=== PATIENT | female | born 1990 | race African-American/Black ===

== ENCOUNTER 2018-04-17 19:13 | Emergency (ER) | payer OTHER ==
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
[2018-04-17 19:52] VITALS: BP 102/66; PULSE 81; TEMP 98; BMI 23.0
[2018-04-17] MEDS ORDERED: ACETAMINOPHEN 500 MG TABLET (FP) PO ONE (20:59)
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
[2018-04-17] MEDS ORDERED: ACETAMINOPHEN 500 MG TABLET (FP) ONE (21:04)
== END 2018-04-17 21:28 | disposition home or self-care (01) ==
LOC: JERFT 19:13 → JER 19:13 → JERFT 21:28
DX: S16.1XXA Strain of muscle, fascia and tendon at neck level, initial encounter (principal); S39.012A Strain of muscle, fascia and tendon of lower back, initial encounter; V43.52XA Car driver injured in collision with other type car in traffic accident, initial encounter; Y92.414 Local residential or business street as the place of occurrence of the external cause; Y93.89 Activity, other specified; Y99.8 Other external cause status
CPT/HCPCS: 84703; 99281-25

== ENCOUNTER 2019-03-14 11:48 | Emergency (ER) | payer OTHER ==
[2019-03-14 12:11] VITALS: BP 95/68; PULSE 113; TEMP 98.5; BMI 24.7
[2019-03-14 13:10] LABS: BASO % 0.6 % (0-2.0); EOS % 6.6 % (0-4.5); HEMATOCRIT 39.2 % (32.4-45.2); HEMOGLOBIN 13.1 GM/dL (10.7-15.3); LYMPH % 19.4 % (8-40); MCH 29.6 pg (25.7-33.7); MCHC 33.3 g/dl (32.0-36.0); MEAN CELL VOLUME 88.8 fl (80-96); MEAN PLT VOLUME 7.6 fl (7.5-11.1); MONO % 8.6 % (3.8-10.2); NEUT % 64.8 % (42.8-82.8); PLATELET COUNT 335 K/MM3 (134-434); RBC 4.42 M/mm3 (3.60-5.2); RDW 12.9 % (11.6-15.6); WHITE BLOOD COUNT 8.1 K/mm3 (4.0-10.0)
--- NOTE | 2019-03-14 13:40 | PDOC ---
Documentation entered by Danial Robbins SCRIBE, acting as scribe for Nicolas Rodriguez MD. Nicolas Rodriguez MD: This documentation has been prepared by the Itzel hendrickson Nirvannie, SCRIBE, under my direction and personally reviewed by me in its entirety. I confirm that the documentation accurately reflects all work, treatment, procedures, and medical decision making performed by me. History of Present Illness - General Chief Complaint: Vaginal Bleeding Stated Complaint: VAGINAL BLEEDING Time Seen by Provider: 03/14/19 12:40 History Source: Patient Exam Limitations: No Limitations - History of Present Illness Initial Comments: 03/14/19 13:27 CC: Vaginal bleeding HPI: The patient is a 28 year old female P2, with a significant past medical history of substance abuse (cocaine per EMR) and anxiety, who presents to the emergency department with 2 days of progressively worsening vaginal bleeding. As per patient, her vaginal bleeding onset as spotting and today has progressed to heavy bleeding with large clots with associated lower abdominal cramping, prompting her arrival to the ED. Patient has not received care or confirmatory USS. She denies recent fevers, chills, headache, lightheadedness, or dizziness. She denies recent nausea, vomit, diarrhea or constipation. She denies recent chest pain or shortness of breath. Allergies: [facility] Primary Care Physician: Dr. Pulido LMP: 01/2019 Past History - Past Medical History Allergies/Adverse Reactions: Allergies Allergy/AdvReac Type Severity Reaction Status Date / Time No Known Allergies Allergy Verified 03/14/19 12:11 Home Medications: Ambulatory Orders Pnv95/Iron Fum/Folic Acid [ Caplet] 1 each PO DAILY 01/08/16 Ibuprofen [Motrin -] 600 mg PO QID #28 tablet 01/12/16 Cyclobenzaprine HCl [Flexeril 10 mg] 10 mg PO HS PRN #10 tablet 04/17/18 Ibuprofen [Motrin -] 600 mg PO TID #30 tablet 04/17/18 Anemia: No Asthma: No Cancer: No Cardiac Disorders: No CVA: No COPD: No Diabetes: No GI Disorders: No Disorders: Yes (IN THE PAST) HTN: No Hypercholesterolemia: No Kidney Stones: No Psychiatric Problems: Yes (ANXIETY.) Seizures: No Thyroid Disease: No - Surgical History Abdominal Surgery: Yes - Reproductive History PID: No - Immunization History Immunization Up to Date: Yes - Psycho Social/Smoking Cessation Hx Smoking History: Current every day smoker Have you smoked in the past 12 months: Yes Number of Cigarettes Smoked Daily: 2 Information on smoking cessation initiated: No 'Breaking Loose' booklet given: 03/17/15 Hx Alcohol Use: Yes (social) Drug/Substance Use Hx: No Substance Use Type: Cocaine Hx Substance Use Treatment: No Abd/GI Specific PMHX - Complaint Specific PMHX Hepatitis: No Pancreatitis: No Review of Systems - Review of Systems Able to Perform ROS?: Yes Comments:: 03/14/19 13:28 ROS: A complete review of 10 out of 10 review of systems is taken and is negative apart from what is previously mentioned below and in the HPI. *Physical Exam - Vital Signs Last Vital Signs Temp Pulse Resp BP Pulse Ox 98.5 F 113 H 16 95/68 100 03/14/19 12:08 03/14/19 12:08 03/14/19 12:08 03/14/19 12:08 03/14/19 12:08 - Physical Exam 03/14/19 13:28 Vitals: Triage Vital signs reviewed General Appearance: no acute distress, well nourished well developed, Head: Atraumatic, normocephalic Cardiac: Regular rate and rhythm, no murmurs, no rubs, no gallops, Lungs: Clear to auscultation bilateral, good air movement bilaterally, Abdomen: +Mild lower abdominal tenderness. Soft, nondistended, normal bowel sounds Rectal: Exam deferred Extremities: Full range of motion to all extremities, no cyanosis, clubbing, or edema Skin: Warm and dry, no rashes or lesions, no petechiae Psych: normal mood, normal affect ED Treatment Course - LABORATORY CBC & Chemistry Diagram: 03/14/19 13:00 - ADDITIONAL ORDERS Additional order review: 03/14/19 13:00 RBC 4.42 MCV 88.8 MCHC 33.3 RDW 12.9 MPV 7.6 Neutrophils % 64.8 Lymphocytes % 19.4 D Monocytes % 8.6 Eosinophils % 6.6 H D Basophils % 0.6 - RADIOLOGY Radiology Studies Ordered: Category Date Time Status TRANSVAGINAL ULTRASOUND US [US] Stat Ultrasound 03/14/19 12:37 Taken Medical Decision Making - Medical Decision Making 03/14/19 13:57 History and examination consistent with miscarriage in process Be positive blood type hCG 1000 We will recommend follow-up with her [facility] or with Dr. Paulino Patient require 2-day follow-up for repeat beta repeat ultrasound Findings, the need for follow-up and strict return instructions discussed with patient. Discharge - Discharge Information Problems reviewed: Yes Clinical Impression/Diagnosis: Miscarriage Condition: Fair Disposition: HOME - Admission No - Follow up/Referral Referrals: Beth Pulido [Primary Care Provider] - Judd Montenegro MD [Staff Physician] - - Patient Discharge Instructions Patient Printed Discharge Instructions: Miscarriage Additional Instructions: Follow-up with your [facility] or Dr. Montenegro within 1 to 2 days otherwise return to the ED in 1days 1 to 2 days for repeat ultrasound and repeat beta Return to ED immediately for any severe abdominal pain dizziness lightheadedness bleeding greater than 2 pads per hour fever or for any concerns - Post Discharge Activity Work/Back to School Note: Back to Work
== END 2019-03-14 14:30 | disposition home or self-care (01) ==
LOC: JER 11:48 → SUPCPDRO 11:48 → JER 14:30
DX: O03.9 Complete or unspecified spontaneous abortion without complication (principal); F19.10 Other psychoactive substance abuse, uncomplicated; F41.9 Anxiety disorder, unspecified; F17.210 Nicotine dependence, cigarettes, uncomplicated
CPT/HCPCS: 36415; 76830-TC; 84702; 85025; 86850; 86900; 86901; 99282-25

== ENCOUNTER 2020-11-07 15:11 | Emergency (ER) | payer OTHER ==
[2020-11-07 15:19] VITALS: BP 116/70; PULSE 97; TEMP 98.5; BMI 24.7
[2020-11-07] MEDS ORDERED: KETOROLAC TROMETHAMINE 30 MG/1 ML VIAL IM ONE (16:07)
[2020-11-07] MEDS ORDERED: KETOROLAC TROMETHAMINE 30 MG/1 ML VIAL ONE (16:09)
== END 2020-11-07 16:31 | disposition home or self-care (01) ==
LOC: JERFT 15:11 → JER 15:11 → JERFT 16:31
PROC: 3E023GC Introduction of Other Therapeutic Substance into Muscle, Percutaneous Approach (ICD-10-PCS; principal; 2020-11-07)
DX: K08.89 Other specified disorders of teeth and supporting structures (principal)
CPT/HCPCS: 96372; 99284-25

== ENCOUNTER 2020-11-24 04:12 | Emergency (ER) | payer OTHER ==
[2020-11-24 04:24] VITALS: BP 129/83; PULSE 95; TEMP 99.8; BMI 23.0
[2020-11-24] MEDS ORDERED: ACETAMINOPHEN 325 MG TABLET (FP) PO ONE (04:39)
[2020-11-24] MEDS ORDERED: ACETAMINOPHEN 325 MG TABLET (FP) ONE (04:49)
[2020-11-24] MEDS ORDERED: IBUPROFEN 600 MG TABLET (FP) PO ONE ×2 (04:55→05:01)
== END 2020-11-24 05:03 | disposition home or self-care (01) ==
LOC: JER 04:12
DX: R51.9 Headache, unspecified (principal); T50.B95A Adverse effect of other viral vaccines, initial encounter
CPT/HCPCS: 99283-25; C9803; U0003; U0005

== ENCOUNTER 2021-06-11 17:57 | Emergency (ER) | payer OTHER ==
[2021-06-11 18:28] VITALS: BP 104/66; PULSE 79; TEMP 98.5; BMI 20.9
[2021-06-13 00:06] LABS: SARS-CoV-2 NAA Not Detected (Not Detected)
== END 2021-06-11 19:59 | disposition home or self-care (01) ==
LOC: JER 17:57
DX: Z20.822 Contact with and (suspected) exposure to COVID-19 (principal)
CPT/HCPCS: 87804; 99283-25; C9803-CS; U0003; U0005

== ENCOUNTER 2023-01-31 06:30 | Emergency (ER) | payer OTHER ==
[2023-01-31 06:42] VITALS: BP 132/89; RESP 18; TEMP 98.1
[2023-01-31] MEDS ORDERED: KETOROLAC TROMETHAMINE 30 MG/1 ML VIAL IM ONE (07:35)
[2023-01-31] MEDS ORDERED: diazePAM 5 MG TABLET PO ONE (07:35)
[2023-01-31] MEDS ORDERED: diazePAM 5 MG TABLET ONE (07:54)
[2023-01-31] MEDS ORDERED: LIDOCAINE 4% PATCH TP ONE ×2 (07:55→08:17)
[2023-01-31] MEDS ORDERED: KETOROLAC TROMETHAMINE 30 MG/1 ML VIAL ONE (07:55)
[2023-01-31] MEDS: LIDOCAINE 5% TOPICAL PATCH TP ONE ×2 (08:05→08:21)
[2023-01-31 08:25] VITALS: PULSE 98
[2023-01-31] MEDS ORDERED: LIDOCAINE PATCH REMOVAL MC ONE ×2 (22:00)
== END 2023-01-31 08:31 | disposition home or self-care (01) ==
LOC: JER 06:30
PROC: 3E0233Z Introduction of Anti-inflammatory into Muscle, Percutaneous Approach (ICD-10-PCS; principal; 2023-01-31)
DX: M54.42 Lumbago with sciatica, left side (principal); R53.1 Weakness
CPT/HCPCS: 72100-TC-FY; 99284-25

== ENCOUNTER 2023-03-20 02:06 | Emergency (ER) | payer OTHER ==
[2023-03-20 02:18] VITALS: BP 126/90; PULSE 104; RESP 18; TEMP 97.8; BMI 20.5
[2023-03-20] MEDS ORDERED: ACETAMINOPHEN 325 MG TABLET (FP) ONE (02:55)
[2023-03-20] MEDS: ACETAMINOPHEN 325 MG TABLET (FP) PO ONE (03:19)
[2023-03-20 03:24] LABS: BASO % 0.8 % (0-2.0); HEMATOCRIT 35.7 % (32.4-45.2); HEMOGLOBIN 11.9 GM/dL (10.7-15.3); MCH 29.3 pg (25.7-33.7); MCHC 33.5 g/dl (32.0-36.0); MEAN CELL VOLUME 87.4 fl (80-96); MEAN PLT VOLUME 7.6 fl (7.5-11.1); MONO % 9.5 % (3.8-10.2); NEUT % 50.7 % (42.8-82.8); PLATELET COUNT 287 10^3/uL (134-434); RBC 4.08 M/mm3 (3.60-5.2); RDW 14.3 % (11.6-15.6); WHITE BLOOD COUNT 6.1 K/mm3 (4.0-10.0)
[2023-03-20 03:44] LABS: POTASSIUM 3.5 mmol/L (3.5-5.1)
[2023-03-20 03:46] LABS: ALBUMIN 4.3 g/dl (3.4-5.0); BLOOD UREA NITROGEN 19.6 mg/dL (7-18); CALCIUM 9.5 mg/dL (8.5-10.1)
[2023-03-20 03:49] LABS: CREATININE 0.8 mg/dL (0.55-1.3)
[2023-03-20 03:51] LABS: BILIRUBIN,TOTAL 0.5 mg/dL (0.2-1); TOT PROT 7.8 g/dl (6.4-8.2)
== END 2023-03-20 04:41 | disposition home or self-care (01) ==
LOC: JER 02:06
DX: M79.601 Pain in right arm (principal); R20.2 Paresthesia of skin; R20.0 Anesthesia of skin; R07.9 Chest pain, unspecified
CPT/HCPCS: 36415; 71046-TC-FY; 73030-TC-RT-FY; 73060-TC-RT-FY; 80053; 84484; 84703; 85025; 93005; 93010; 99285-25

== ENCOUNTER 2023-06-28 21:52 | Emergency (ER) | payer OTHER ==
[2023-06-28 21:57] VITALS: BP 113/78; PULSE 109; RESP 20; TEMP 98.2; BMI 20.3
[2023-06-28 23:58] LABS: BASO % 0.4 % (0-2.0); EOS % 5.6 % (0-4.5); HEMATOCRIT 36.4 % (32.4-45.2); HEMOGLOBIN 12.2 GM/dL (10.7-15.3); LYMPH % 14.8 % (8-40); MCH 29.9 pg (25.7-33.7); MCHC 33.5 g/dl (32.0-36.0); MEAN CELL VOLUME 89.2 fl (80-96); MEAN PLT VOLUME 7.5 fl (7.5-11.1); MONO % 7.2 % (3.8-10.2); PLATELET COUNT 324 10^3/uL (134-434); RBC 4.08 M/mm3 (3.60-5.2); RDW 12.9 % (11.6-15.6); WHITE BLOOD COUNT 11.2 K/mm3 (4.0-10.0)
[2023-06-29 00:04] LABS: INR 1.04 (0.83-1.09)
[2023-06-29 00:06] LABS: ACTIVATED PTT 24.5 SECONDS (25.2-36.5)
[2023-06-29] MEDS: morphine CARPU-JECT 2 MG/1 ML DISP.SYRIN IVPUSH ONE (00:15)
[2023-06-29 00:19] LABS: POTASSIUM 3.9 mmol/L (3.5-5.1)
[2023-06-29 00:21] LABS: CALCIUM 9.2 mg/dL (8.5-10.1)
[2023-06-29 00:22] LABS: ALBUMIN 3.3 g/dl (3.4-5.0); BLOOD UREA NITROGEN 7.2 mg/dL (7-18)
[2023-06-29 00:25] LABS: CREATININE 0.6 mg/dL (0.55-1.3)
[2023-06-29 00:26] LABS: BILIRUBIN,TOTAL 0.3 mg/dL (0.2-1); TOT PROT 7.4 g/dl (6.4-8.2)
[2023-06-29 00:51] LABS: ERYTHROCYTE SEDIMENTATION RATE 58 mm/hr (0-20)
== END 2023-06-29 00:43 | disposition short-term general hospital (02) ==
LOC: JER 21:52
PROC: 3E033NZ Introduction of Analgesics, Hypnotics, Sedatives into Peripheral Vein, Percutaneous Approach (ICD-10-PCS; principal; 2023-06-28)
DX: O99.711 Diseases of the skin and subcutaneous tissue complicating pregnancy, first trimester (principal); L02.512 Cutaneous abscess of left hand; Z3A.12 12 weeks gestation of pregnancy
CPT/HCPCS: 36415; 73130-TC-LT-FY; 73130-TC-RT-FY; 80053; 84702; 85025; 85610; 85651; 85730; 86140; 99285-25